=== PATIENT | female | born 1985 | race Two or more races ===

== ENCOUNTER 2021-06-30 18:20 | Emergency (ER) | payer OTHER ==
[2021-06-30 18:52] LABS: BASOPHILS % (AUTO) 0.6 %; EOSINOPHILS # (AUTO) 0.2 10^3/uL (0.0-0.7); EOSINOPHILS % (AUTO) 2.6 %; HCT - HEMATOCRIT 37.4 % (37.0-47.0); HGB - HEMOGLOBIN 12.6 g/dL (12.0-16.0); LYMPHOCYTES # (AUTO) 2.1 10^3/uL (1.5-3.5); LYMPHOCYTES % (AUTO) 29.8 %; MEAN CORPUSCULAR HGB CONC 33.7 g/dL (32.0-36.0); MEAN CORPUSCULAR VOLUME 91.9 fL (81.0-99.0); MEAN PLATELET VOLUME 8.9 fL (7.9-10.8); MONOCYTES # (AUTO) 0.5 10^3/uL (0.0-1.0); MONOCYTES % (AUTO) 6.8 %; NEUTROPHILS # (AUTO) 4.2 10^3/uL (1.5-6.6); NEUTROPHILS % (AUTO) 60.1 %; PLT - PLATELET COUNT 310 10^3/uL (130-450); RED BLOOD COUNT 4.07 10^6/uL (4.20-5.40); RED CELL DISTRIBUTION WIDTH 11.9 % (12.0-15.0)
[2021-06-30 18:53] LABS: BILIRUBIN,URINE NEGATIVE (NEGATIVE); GLUCOSE, URINE (UA) NEGATIVE (NEGATIVE); KETONES,URINE (UA) NEGATIVE (NEGATIVE); LEUKOCYTE ESTERASE, URINE NEGATIVE (NEGATIVE); NITRITE,URINE NEGATIVE (NEGATIVE); OCCULT BLOOD,URINE MODERATE (NEGATIVE); PH,URINE 6.5 PH (5.0-7.5); PROTEIN,URINE NEGATIVE (NEGATIVE); UROBILINOGEN,URINE 0.2 (NORMAL) E.U./dL (NORMAL)
[2021-06-30 18:57] LABS: CLARITY,URINE CLEAR (CLEAR)
[2021-06-30 19:06] LABS: ALBUMIN 4.3 g/dL (3.2-5.5); ALBUMIN/GLOBULIN RATIO 1.4 (1.0-2.2); BILIRUBIN,TOTAL 0.3 mg/dL (0.2-1.0); CALCIUM 9.2 mg/dL (8.5-10.3); CREATININE 0.9 mg/dL (0.4-1.0); POTASSIUM 4.1 mmol/L (3.5-5.0); TOTAL PROTEIN 7.4 g/dL (6.7-8.2)
[2021-06-30 19:12] LABS: BACTERIA,URINE None Seen /HPF (None Seen); RBC,URINE 0-5 /HPF (0-5); SQUAMOUS EPITHELIAL CELL,UR FEW Squamous (<= Few); WBC,URINE 0-3 /HPF (0-5)
[2021-06-30 19:23] VITALS: BP 107/68
--- NOTE | 2021-06-30 20:16 | ED Physician Documentation ---
History of Present Illness - Stated complaint Stated Complaint: SPOTTING/BLEEDING - Chief complaint Chief Complaint: Abd Pain - Additonal information Additional information: 35-year-old female presents emergency department for evaluation of vaginal bleeding in first trimester . G3, . LMP 04/26/2021. Patient has not yet established with an OB but does have an appointment in approximately 10 days. States that she began having light spotting and vaginal cramping earlier this afternoon. No dysuria urgency or frequency. No fevers. Review of Systems Constitutional: denies: Fever, Chills Nose: reports: Reviewed and negative Throat: reports: Reviewed and negative Cardiac: reports: Chest pain / pressure Respiratory: reports: Reviewed and negative GI: denies: Nausea, Vomiting : reports: LMP (04/26/2021), Vaginal bleeding, Now EGA. denies: Dysuria Skin: reports: Reviewed and negative Musculoskeletal: reports: Reviewed and negative PD PAST MEDICAL HISTORY - Allergies Allergies/Adverse Reactions: Allergies Allergy/AdvReac Type Severity Reaction Status Date / Time No Known Drug Allergies Allergy Verified 06/30/21 18:27 PD ED PE NORMAL - General General: Alert and oriented X 3, No acute distress - HEENT HEENT: PERRL - Cardiac Cardiac: RRR, No murmur - Respiratory Respiratory: No respiratory distress - Abdomen Abdomen: Normal bowel sounds, Soft. No: Non tender - Female Female : Deferred Results - Vitals Vitals: Vital Signs - 24 hr 06/30/21 06/30/21 06/30/21 18:23 18:26 19:45 Temperature 36.4 C L 37.1 C Heart Rate 81 65 Respiratory 20 15 Rate Blood Pressure 133/74 H 107/68 O2 Saturation 99 96 Oxygen O2 Source Room air - Labs Labs: Laboratory Tests 06/30/21 06/30/21 06/30/21 18:37 18:45 18:45 WBC 7.0 RBC 4.07 L Hgb 12.6 Hct 37.4 MCV 91.9 MCH 31.0 MCHC 33.7 RDW 11.9 L Plt Count 310 MPV 8.9 Neut # (Auto) 4.2 Lymph # (Auto) 2.1 [place]ala # (Auto) 0.5 Eos # (Auto) 0.2 Baso # (Auto) 0.0 Absolute Nucleated RBC 0.00 Nucleated RBC % 0.0 Sodium 136 Potassium 4.1 Chloride 100 L Carbon Dioxide 27 Anion Gap 9.0 BUN 15 Creatinine 0.9 Estimated GFR (MDRD) 71 L Glucose 100 Calcium 9.2 Total Bilirubin 0.3 AST 16 ALT 12 Alkaline Phosphatase 52 Total Protein 7.4 Albumin 4.3 Globulin 3.1 Albumin/Globulin Ratio 1.4 Lipase 40 HCG, Quant Urine Color YELLOW Urine Clarity CLEAR Urine pH 6.5 Ur Specific Armstrong 1.020 Urine Protein NEGATIVE Urine Glucose (UA) NEGATIVE Urine Ketones NEGATIVE Urine Occult Blood MODERATE H Urine Nitrite NEGATIVE Urine Bilirubin NEGATIVE Urine Urobilinogen 0.2 (NORMAL) Ur Leukocyte Esterase NEGATIVE Urine RBC 0-5 Urine WBC 0-3 Ur Squamous Epith Cells FEW Squamous Urine Bacteria None Seen Ur Microscopic Review INDICATED Urine Culture Comments NOT INDICATED Blood Type 06/30/21 06/30/21 18:45 18:45 WBC RBC Hgb Hct MCV MCH MCHC RDW Plt Count MPV Neut # (Auto) Lymph # (Auto) Zavala # (Auto) Eos # (Auto) Baso # (Auto) Absolute Nucleated RBC Nucleated RBC % Sodium Potassium Chloride Carbon Dioxide Anion Gap BUN Creatinine Estimated GFR (MDRD) Glucose Calcium Total Bilirubin AST ALT Alkaline Phosphatase Total Protein Albumin Globulin Albumin/Globulin Ratio Lipase HCG, Quant 28918.00 Urine Color Urine Clarity Urine pH Ur Specific Armstrong Urine Protein Urine Glucose (UA) Urine Ketones Urine Occult Blood Urine Nitrite Urine Bilirubin Urine Urobilinogen Ur Leukocyte Esterase Urine RBC Urine WBC Ur Squamous Epith Cells Urine Bacteria Ur Microscopic Review Urine Culture Comments Blood Type O POSITIVE - Rads (name of study) OB US Radiology: See rad report, Other (Per water quality technician there is a gestational sac and a yolk sac but no pole. There does appear to be a small amount of layering blood in the gestational sac. findings are concerning for impending, or threatened miscarriage) PD MEDICAL DECISION MAKING - ED course Complexity details: reviewed results, re-evaluated patient, considered differential, d/w patient ED course: 35-year-old female presents emergency department for evaluation of vaginal bleeding and pelvic cramping in first trimester . She is O+. Screening labs showed no acute worrisome findings. No findings of infection in the urine. Hormone levels just above 28,000. Unfortunately a pelvic OB ultrasound reveals a gestational and yolk sac without a pole. In addition to this the technologist reported layering blood within the gestational sac. She has started to have increased vaginal bleeding and cramping after ultrasound. I suspect that this is an impending or threatened miscarriage. Patient will discuss this ED visit with her OB on Friday. She is advised that further care management options could include repeat hormone level versus expectant care and management. Reassuringly there are no findings to suggest an ectopic . Emergent worrisome return precautions otherwise discussed. Departure - Departure Disposition: Home, Self Care Clinical Impression: Threatened in first trimester Condition: Stable Instructions: ED Miscarriage Poss Comments: Yajaira unfortunately the ultrasound today shows that you have a gestational sac but no evidence of cardiac activity. Based on your hormone levels as well as your last menstrual period we would expect to see a heart beat at this time. I suspect that you are in the process of having a miscarriage. At this stage in you can expect menstrual-like bleeding or perhaps a little heavier as well as abdominal cramping. If at any point you have vaginal bleeding that is heavier than 1 menstrual pad an hour, have sudden severe lower belly pain, feel faint or have fainting episodes then please return immediately to the ER. I would like you to discuss this ED visit with your OB providers on Friday. Please let them know that you came to the emergency department for vaginal bleeding. Your hormone level today was just over 20,000. They may want to consider a lab recheck in 48 to 72 hours or just discuss expectant management.
--- NOTE | 2021-06-30 20:28 | Ultrasound Report ---
PROCEDURE: OB First Trimester INDICATIONS: spotting 9 weeks OUTSIDE/PRIOR DATING DATA: Last menstrual period (LMP): 04/26/2021. LMP-based estimated date of delivery (ZIGGY): 01/31/2022. First dating scan (date and location): 06/30/2021. TECHNIQUE: Real-time scanning was performed of the fetus and maternal pelvic organs, with image documentation. COMPARISON: None. FINDINGS: Intrauterine gestational sac and yolk sac are seen. Mean sac diameter is 1.82 cm, compatible with an estimated gestational age of 6 weeks 5 days. Low-level echoes are seen within the gestational sac flu id. No pole identified. Measurement variability in dating: +/- 4 weeks by LMP, +/- 7 days by mean sac diameter (use before 6 weeks gestation if crown-rump length not able to be measured), +/- 5 days by crown-rump length (6-12 weeks gestation). Maternal organs: A left corpus luteum cyst is seen measuring up to 1.6 cm in diameter. No free fluid is seen. IMPRESSION: Intrauterine gestational sac and yolk sac are seen. No pole is identified. Nonspecific low leve l echoes are seen within the gestational sac. Findings are suspicious but not diagnostic for early pr egnancy failure. Recommend serial beta-hCG measurements and follow-up ultrasound. Concordant preliminary findings were conveyed to the ordering provider by the prosthetic lab technician on 2 at 7:45 PM Reviewed by: Francisco Moore MD on 06/30/2021 8:27 PM PST Approved by: Francisco Moore MD on 06/30/2021 8:27 PM PST Station ID: [id number]
--- NOTE | 2021-06-30 20:29 | Ultrasound Report ---
PROCEDURE: OB Transvaginal INDICATIONS: spotting 9 weeks OUTSIDE/PRIOR DATING DATA: Last menstrual period (LMP): 04/26/2021. LMP-based estimated date of delivery (ZIGGY): 01/31/2022. First dating scan (date and location): 06/30/2021. TECHNIQUE: Real-time scanning was performed of the fetus and maternal pelvic organs, with image documentation. COMPARISON: None. FINDINGS: Intrauterine gestational sac and yolk sac are seen. Mean sac diameter is 1.82 cm, compatible with an estimated gestational age of 6 weeks 5 days. Low-level echoes are seen within the gestational sac flu id. No pole identified. Measurement variability in dating: +/- 4 weeks by LMP, +/- 7 days by mean sac diameter (use before 6 weeks gestation if crown-rump length not able to be measured), +/- 5 days by crown-rump length (6-12 weeks gestation). Maternal organs: A left corpus luteum cyst is seen measuring up to 1.6 cm in diameter. No free fluid is seen. IMPRESSION: Intrauterine gestational sac and yolk sac are seen. No pole is identified. Nonspecific low leve l echoes are seen within the gestational sac. Findings are suspicious but not diagnostic for early pr egnancy failure. Recommend serial beta-hCG measurements and follow-up ultrasound. Concordant preliminary findings were conveyed to the ordering provider by the bistro attendant on 2 at 7:45 PM. Reviewed by: Francisco Moore MD on 06/30/2021 8:27 PM PST Approved by: Francisco Moore MD on 06/30/2021 8:27 PM PST Station ID: [id number]
== END 2021-06-30 20:08 | disposition home or self-care (01) ==
LOC: ED 18:20
DX: O20.0 Threatened abortion (principal); Z3A.09 9 weeks gestation of pregnancy
CPT/HCPCS: 36415; 80053; 81001; 81003; 83690; 84702; 85025; 86900; 86901; 87086; 99284

== ENCOUNTER 2022-08-12 14:45 | Outpatient (CLI) | payer OTHER ==
[2022-08-12 19:57] LABS: BASOPHILS % (AUTO) 0.4 %; EOSINOPHILS # (AUTO) 0.1 10^3/uL (0.0-0.7); EOSINOPHILS % (AUTO) 1.8 %; HCT - HEMATOCRIT 35.2 % (37.0-47.0); HGB - HEMOGLOBIN 11.6 g/dL (12.0-16.0); LYMPHOCYTES # (AUTO) 1.9 10^3/uL (1.5-3.5); LYMPHOCYTES % (AUTO) 23.8 %; MEAN CORPUSCULAR HEMOGLOBIN 30.5 pg (27.0-31.0); MEAN CORPUSCULAR VOLUME 92.6 fL (81.0-99.0); MEAN PLATELET VOLUME 9.5 fL (7.9-10.8); MONOCYTES # (AUTO) 0.4 10^3/uL (0.0-1.0); MONOCYTES % (AUTO) 5.4 %; NEUTROPHILS # (AUTO) 5.5 10^3/uL (1.5-6.6); NEUTROPHILS % (AUTO) 68.2 %; PLT - PLATELET COUNT 328 10^3/uL (130-450); RED CELL DISTRIBUTION WIDTH 12.9 % (12.0-15.0)
[2022-08-12 20:14] LABS: BILIRUBIN,URINE NEGATIVE (NEGATIVE); GLUCOSE, URINE (UA) NEGATIVE (NEGATIVE); KETONES,URINE (UA) NEGATIVE (NEGATIVE); LEUKOCYTE ESTERASE, URINE NEGATIVE (NEGATIVE); NITRITE,URINE NEGATIVE (NEGATIVE); OCCULT BLOOD,URINE NEGATIVE (NEGATIVE); PH,URINE 6.5 PH (5.0-7.5); PROTEIN,URINE NEGATIVE (NEGATIVE); UROBILINOGEN,URINE 0.2 (NORMAL) E.U./dL (NORMAL)
[2022-08-12 20:19] LABS: CLARITY,URINE CLEAR (CLEAR)
[2022-08-12 20:27] LABS: RBC,URINE 0-5 /HPF (0-5); WBC,URINE 0-3 /HPF (0-5)
[2022-08-12 20:28] LABS: AMORPHOUS SEDIMENT,UR Few /LPF; BACTERIA,URINE Rare /HPF (None Seen); SQUAMOUS EPITHELIAL CELL,UR FEW Squamous (<= Few)
[2022-08-14 04:09] LABS: RPR Non Reactive (Non Reactive)
[2022-08-14 06:10] LABS: HBsAG SCREEN Negative (Negative)
[2022-08-14 07:10] LABS: VARICELLA-ZOSTER AB IGG 695 index (Immune >165)
[2022-08-14 08:10] LABS: HCV AB Non Reactive (Non Reactive); HIV SCREEN 4TH GENERATION Non Reactive (Non Reactive)
== END 2022-08-12 14:46 | disposition home or self-care (01) ==
LOC: LAB.S 14:45
PROVIDERS: ATTEND Obstetrics & Gynecology
DX: Z34.90 Encounter for supervision of normal pregnancy, unspecified, unspecified trimester (principal)
CPT/HCPCS: 36415; 81001; 85025; 86592; 86762; 86787; 86803; 86850; 86900; 86901; 87086; 87340; 87389

== ENCOUNTER 2022-08-14 14:46 | Outpatient (CLI) | payer OTHER ==
--- NOTE | 2022-08-14 16:08 | Ultrasound Report ---
PROCEDURE: OB First Trimester w/TV INDICATIONS: POSITIVE TEST OUTSIDE/PRIOR DATING DATA: Last menstrual period (LMP): 06/01/2022. LMP-based estimated date of delivery (ZIGGY): 03/08/2023. First dating scan (date and location): 08/14/2022. Estimated date of delivery (ZIGGY) from first dating scan: 03/09/2023. The below data below was generated using the ultrasound ZIGGY of 03/09/2023 TECHNIQUE: Real-time scanning was performed of the fetus and maternal pelvic organs, with image documentation. Endovaginal scanning was also performed to better visualize the fetus and maternal ovaries. COMPARISON: None. FINDINGS: Embryo: Hyden-rump length measuring 3.49 cm, gestational age 10 weeks 3 days Heart rate: 169 bpm A yolk sac is seen. No prior gestational hemorrhage. Measurement variability in dating: +/- 4 weeks by LMP, +/- 7 days by mean sac diameter (use before 6 weeks gestation if crown-rump length not able to be measured), +/- 5 days by crown-rump length (6-12 weeks gestation). Maternal organs: Ovaries are unremarkable. IMPRESSION: 1. Leal living intrauterine at 10 weeks 3 days based on today's crown-rump length. 2. No perigestational hemorrhage. Reviewed by: Gokul Sylvester MD on 08/14/2022 4:06 PM PDT Approved by: Gokul Sylvester MD on 08/14/2022 4:06 PM PDT Station ID: [id number]
== END 2022-08-14 14:47 | disposition home or self-care (01) ==
LOC: DI 14:46
PROVIDERS: ATTEND Obstetrics & Gynecology
DX: Z34.91 Encounter for supervision of normal pregnancy, unspecified, first trimester (principal)

== ENCOUNTER 2022-08-16 08:00 | Outpatient (CLI) | payer OTHER ==
[2022-08-16 23:13] LABS: CHLAMYDIA TRACHOMATIS DNA NEGATIVE (NEGATIVE); NEISSERIA GONORRHOEAE DNA NEGATIVE (NEGATIVE); TRICHOMONAS VAGINALIS DNA NEGATIVE (NEGATIVE)
== END 2022-08-16 23:59 | disposition home or self-care (01) ==
LOC: LAB.WC 08:00
PROVIDERS: ATTEND Obstetrics & Gynecology
DX: O09.521 Supervision of elderly multigravida, first trimester (principal)
CPT/HCPCS: 87491; 87591; 87661

== ENCOUNTER 2022-09-23 15:59 | Outpatient (CLI) | payer OTHER | END 2022-09-23 16:00 | disposition home or self-care (01) | LOC: LAB 15:59 | PROVIDERS: ATTEND Obstetrics & Gynecology | DX: O09.521 Supervision of elderly multigravida, first trimester (principal) | CPT/HCPCS: 36415; 81599; 82105; 82950 ==

== ENCOUNTER 2022-11-04 15:16 | Outpatient (CLI) | payer OTHER ==
--- NOTE | 2022-11-04 18:10 | Ultrasound Report ---
PROCEDURE: OB Detailed Eval INDICATIONS: SUPERVISION OF OUTSIDE/PRIOR DATING DATA: Last menstrual period (LMP): 06/01/2022. LMP-based estimated date of delivery (ZIGGY): 03/08/2023. First dating scan (date and location): 08/14/2022. Estimated date of delivery (ZIGGY) from first dating scan: 03/09/2023. The below data below was generated using the ultrasound ZIGGY of 03/09/2023 TECHNIQUE: Real-time scanning was performed of the fetus, with image documentation and biometric measurements. Endovaginal scanning: Not performed COMPARISON: 08/14/2022 FINDINGS: General: A single living intrauterine gestation is present. Presentation: Cephalic Placenta: Placental position is anterior, without previa. Amniotic fluid index: 10.5 cm, within normal limits for gestational age. heart rate: 158 beats per minute. Maternal cervical canal: 4.7 cm long; normal length is 2.5 cm or more. biometrics: Biparietal diameter: 5.02 cm, 21 weeks and 1 days Head circumference: 19.5 cm, 21 weeks and 5 days Abdominal circumference: 17.77 cm, 22 weeks and 5 days Femur length: 3.7 cm, 21 weeks and 5 days Estimated gestational age from initial scan: 22 weeks and 1 day Composite gestational age from present scan: 21 weeks and 4 days Estimated weight and percentile: 481 g, 44.6th percentile. Measurement variability in biometric dating: +/- 10 days from 12-20 weeks gestation, +/- 2 weeks from 20-30 weeks gestation, +/- 3 weeks at 30 weeks gestation or later. Anatomic survey: Neuro: Ventricles are normal at less than 10 mm. Cisterna magna is normal at 3-11 mm. Cerebellum i s normal in size and morphology. Nuchal skin fold: Normal at less than 6 mm between 14 and 20 weeks gestational age. Face: Nose and lips, facial profile are normal. Spine: No evidence for spina bifida. Heart: 4-chambered heart is present, with normal ventricular outflow tracts. Diaphragm: Diaphragm is intact. Stomach: Left-sided stomach is present. Kidneys: No hydronephrosis. Normal is less than 5 mm in 2nd trimester, less than 7 mm in 3rd trimester. Cord: 3 vessel cord has orthotopic insertion. Bladder: Normal in size. Extremities: All 4 extremities are visualized. IMPRESSION: Single living intrauterine gestation with estimated sonographic gestational age of approximately 21 w eeks and 4 days. This measures concordantly with estimated sonographic gestational age from initial s can of approximately 22 weeks and 1 day. Expected interval growth has occurred. Estimated weigh t of approximately 481 g which [address] the fetus within the 44.6th percentile Unremarkable second trimester anatomy screening survey. Reviewed by: Tristian Velazco MD on 11/04/2022 5:09 PM BLANKA Approved by: Tristian Velazco MD on 11/04/2022 5:09 PM BLANKA Station ID: [id number]
== END 2022-11-04 15:17 | disposition home or self-care (01) ==
LOC: DI 15:16
PROVIDERS: ATTEND Obstetrics & Gynecology
DX: O09.522 Supervision of elderly multigravida, second trimester (principal); Z3A.21 21 weeks gestation of pregnancy

== ENCOUNTER 2022-11-21 08:18 | Outpatient (CLI) | payer OTHER ==
[2022-11-21 15:13] LABS: HCT - HEMATOCRIT 33.4 % (37.0-47.0); HGB - HEMOGLOBIN 10.7 g/dL (12.0-16.0); MEAN CORPUSCULAR HEMOGLOBIN 31.1 pg (27.0-31.0); MEAN CORPUSCULAR VOLUME 97.1 fL (81.0-99.0); MEAN PLATELET VOLUME 9.8 fL (7.9-10.8); RED BLOOD COUNT 3.44 10^6/uL (4.20-5.40); RED CELL DISTRIBUTION WIDTH 13.2 % (12.0-15.0); WHITE BLOOD COUNT 8.3 x10^3/uL (4.8-10.8)
== END 2022-11-21 08:19 | disposition home or self-care (01) ==
LOC: LAB.S 08:18
PROVIDERS: ATTEND Obstetrics & Gynecology
DX: O99.012 Anemia complicating pregnancy, second trimester (principal); O34.211 Maternal care for low transverse scar from previous cesarean delivery; O09.522 Supervision of elderly multigravida, second trimester; Z86.32 Personal history of gestational diabetes
CPT/HCPCS: 36415; 82728; 82950; 85027

== ENCOUNTER 2022-12-03 08:41 | Outpatient (CLI) | payer OTHER ==
[2022-12-03 09:25] LABS: GTT GLUCOSE,FASTING 89 mg/dL (74-109)
== END 2022-12-03 08:42 | disposition home or self-care (01) ==
LOC: LAB 08:41
PROVIDERS: ATTEND Obstetrics & Gynecology
DX: O99.012 Anemia complicating pregnancy, second trimester (principal); O99.810 Abnormal glucose complicating pregnancy
CPT/HCPCS: 36415; 82607; 82746; 82951; 82952

== ENCOUNTER 2023-02-06 09:20 | Outpatient (CLI) | payer OTHER ==
[2023-02-06 15:25] LABS: ALBUMIN 3.7 g/dL (3.2-5.5); ALBUMIN/GLOBULIN RATIO 1.4 (1.0-2.2); BILIRUBIN,TOTAL 0.3 mg/dL (0.2-1.0); CALCIUM 9.2 mg/dL (8.5-10.3); CREATININE 0.6 mg/dL (0.6-1.3); TOTAL PROTEIN 6.3 g/dL (6.4-8.9)
== END 2023-02-06 09:21 | disposition home or self-care (01) ==
LOC: LAB.S 09:20
PROVIDERS: ATTEND Nurse Practitioner
DX: R25.2 Cramp and spasm (principal)
CPT/HCPCS: 36415; 80053

== ENCOUNTER 2023-02-10 08:00 | Outpatient (CLI) | payer OTHER | END 2023-02-10 08:01 | disposition home or self-care (01) | LOC: LAB.WC 08:00 | PROVIDERS: ATTEND Obstetrics & Gynecology | DX: Z36.85 Encounter for antenatal screening for Streptococcus B (principal) | CPT/HCPCS: 87797 ==

== ENCOUNTER 2023-02-27 17:56 | Inpatient (IN) | payer OTHER ==
[2023-02-27 19:38] LABS: BILIRUBIN,URINE NEGATIVE (NEGATIVE); GLUCOSE, URINE (UA) NEGATIVE (NEGATIVE); KETONES,URINE (UA) NEGATIVE (NEGATIVE); LEUKOCYTE ESTERASE, URINE SMALL (NEGATIVE); NITRITE,URINE NEGATIVE (NEGATIVE); OCCULT BLOOD,URINE LARGE (NEGATIVE); PROTEIN,URINE TRACE mg/dL (NEGATIVE); UROBILINOGEN,URINE 0.2 (NORMAL) E.U./dL (NORMAL)
[2023-02-27 19:40] LABS: CLARITY,URINE CLOUDY (CLEAR)
[2023-02-27] MEDS ORDERED: CITRIC ACID/SODIUM CITRATE 15 ML UDC PO ONE (20:05)
[2023-02-27] MEDS ORDERED: ACETAMINOPHEN 500 MG TABLET PO ONE (20:05)
[2023-02-27] MEDS ORDERED: ceFAZolin (2G) 2 GM in SODIUM CHLORIDE 0.9% MINIBAG 100 ML IV ONE (20:05)
[2023-02-27 20:16] LABS: BASOPHILS % (AUTO) 0.2 %; EOSINOPHILS # (AUTO) 0.1 10^3/uL (0.0-0.7); EOSINOPHILS % (AUTO) 1.2 %; HCT - HEMATOCRIT 36.4 % (37.0-47.0); LYMPHOCYTES # (AUTO) 1.6 10^3/uL (1.5-3.5); LYMPHOCYTES % (AUTO) 18.3 %; MEAN CORPUSCULAR HEMOGLOBIN 30.8 pg (27.0-31.0); MEAN CORPUSCULAR VOLUME 93.6 fL (81.0-99.0); MEAN PLATELET VOLUME 10.4 fL (7.9-10.8); MONOCYTES # (AUTO) 0.6 10^3/uL (0.0-1.0); MONOCYTES % (AUTO) 7.2 %; NEUTROPHILS # (AUTO) 6.1 10^3/uL (1.5-6.6); NEUTROPHILS % (AUTO) 72.3 %; PLT - PLATELET COUNT 218 10^3/uL (130-450); RED BLOOD COUNT 3.89 10^6/uL (4.20-5.40); RED CELL DISTRIBUTION WIDTH 12.8 % (12.0-15.0); WHITE BLOOD COUNT 8.5 x10^3/uL (4.8-10.8)
--- NOTE | 2023-02-27 20:41 | ANESTHESIA ---
Pre-Anesthesia VS, & Labs - Diagnosis active labor - Procedure section Vital Signs: Temp Pulse Resp BP Pulse Ox O2 Flow Rate 36.8 C 72 16 125/88 H 02/27/23 18:14 02/27/23 18:14 02/27/23 18:14 02/27/23 18:14 Height: 5 ft 2 in Weight (kg): 73.482 kg Body Mass Index: 29.6 BMI Classification: Overweight - NPO Other (lunch at 2pm) - Is Patient ?: Yes - Lab Results Current Lab Results: Laboratory Tests 02/27/23 20:00: WBC 8.5, RBC 3.89 L, Hgb 12.0, Hct 36.4 L, MCV 93.6, MCH 30.8, MCHC 33.0, RDW 12.8, Plt Count 218, MPV 10.4, Neut # (Auto) 6.1, Lymph # (Auto) 1.6, [place] # (Auto) 0.6, Eos # (Auto) 0.1, Baso # (Auto) 0.0, Absolute Nucleated RBC 0.00, Nucleated RBC % 0.0 Fish Bones: 02/27/23 20:00 Home Medications and Allergies Active Medications Lactated Ringer's (Lr) 1,000 mls @ 125 mls/hr IV .Q8H MARY KATE Allergies/Adverse Reactions: Allergies Allergy/AdvReac Type Severity Reaction Status Date / Time No Known Drug Allergies Allergy Verified 06/30/21 18:27 Anes History & Medical History - Anesthetic History Anesthesia Complications: reports: No previous complications - Medical History Cardiovascular: reports: None Pulmonary: reports: None Exam General: Alert, Oriented x3, Cooperative Dental: WNL Mouth Opening: Greater than 4 Fingerbreadths Neck Mobility: Normal Mallampati classification: II Thyromental Distance: greater than 6 cm Respiratory: Lungs clear Cardiovascular: Regular rate Plan Anesthesia Type: Spinal, Transverse Abdominis Plane (TAP) Block Consent for Procedure(s) Verified and Reviewed: Yes Code Status: Attempt Resuscitation ASA classification: 2-Mild systemic disease Is this case an emergency?: Yes (urgent as scheduled C/S for next week)
[2023-02-27] MEDS ORDERED: ePHEDrine 50 MG/ML VIAL IVP ONE (20:55)
[2023-02-27] MEDS ORDERED: OXYTOCIN 10 UNIT/ML VIAL ONE (20:55)
[2023-02-27] MEDS ORDERED: SODIUM CHLORIDE 0.9% 10 ML VIAL IVP ONE ×2 (20:55→20:57)
[2023-02-27] MEDS ORDERED: LACTATED RINGERS 1,000 ML IV SCH ×2 (21:00→23:45)
[2023-02-27] MEDS ORDERED: OXYTOCIN/SODIUM CHLORIDE 500 ML IV ONE (21:13)
--- NOTE | 2023-02-27 21:27 | HISTORY & PHYSICAL EXAMINATION ---
Admit History - Visit Reason Visit Reason: Contractions - : 4 Parity: 1 Premature: 0 Ectopic: 0 : 2 Care: positive: [facility] Risk/History: positive: Other (AMA, failed 1h GTT, passed 3h GTT) Complications This : positive: None Smoking Status: Never smoker - Mother's Labs Mother's Blood Type: positive: O Mother's RH: positive: Positive GBS: positive: Group B Step Negative Rubella Status: positive: Equivocal, Immune - Other Maternal History Other Maternal History: PROBLEMS: section 08/28/2019 was breech, plan for RCS AMA - [facility] did genetic testing. History of GDM - 1h elevated, 3h wnl. discussed diet and exercise as if diabetic / healthy lifestyle. Anemia LEEP x1 Rubella N-I plan for IUD - possibly at time c/s LMP: 06/01/22 ZIGGY by LMP: 03/08/23 US:08/14/2022; 10+3, ZIGGY 03/09/2023 Final ZIGGY: 03/08/2023; C/W dates Pre- Weight:140.0 BMI: 25.70 Blood type: O Rh: POSITIVE Antibody: NEGATIVE CBC: PLT 328 HCT 35.2 HGB 11.6 RUB:Equivocal VZV:Immune HBsAg: Negative HepC: Non reactive RPR/AB-EIA: Non reactive HIV: Non reactive PAP: 2019 Normal per pt LEEP 02/2014 GC/CT: negative 08/16/22 HSV:Denies self or partner Genetic testing: [facility] pending from [facility] sent fax 02/10 for genetic screening results AFP: Negative Covid: 03/2021, 04/2021 Booster 03/2022 Booster 01/2023 Flu:given 01/03/2023 RSV- 02/11 FAS Placenta:Anterior w/o previa Cord: 3VC MATT:105cm EFW:481g 44.6th%ile 50gm OGCT: EARLY 09/23- 113 1hr GTT 140 3HR GTT: 89,194,149,76 TDAP: 12/17 Breast Pump: 12/17 Antibody screen: 3rd trimester H/H 33.410.1 [id number] 3rd trimester HIV GBS:Negative MOD: 39-week repeat - delayed cord clamping, skin to skin in OR if possible. Contraception: IUD likely 6 weeks, but considering at CS PMH: denies PSH: C/S x1, LEEP x1 POB: PGYN: h/o abnormal pap followed by LEEP. no h/o STDs no h/o problems with ovaries or uterus Meds: PNV, FeSO4, miralax All: NKDA Soc: neg x3, lives with Harshad her and their 3.5yo son. Fam: diabetes VSS NAD Conjunctiva pink, pale sclera +S1, S2, CTAB, no increased work of breathing Abd soft, NT, ND, visibly gravid at term Saleem: cephalic 8#4 EFM: 135mod andre + A cells, one andre D cell x1, cat II though overall very reassuring. Hawkins: occ ctx Cx: 1/100/-2 Ext: neg CCE . - HPI Current EDU 03/08/23 Gestation 38 Weeks and 5 Days 4 Para 1 Vital Signs Temperature 98.2 F 02/27/23 18:14 Heart Rate 72 02/27/23 18:14 Respiratory Rate 16 02/27/23 18:14 Blood Pressure 125/88 H 02/27/23 18:14 Temperature 98.2 F 02/27/23 18:14 Heart Rate 72 02/27/23 18:14 Respiratory Rate 16 02/27/23 18:14 Blood Pressure 125/88 H 02/27/23 18:14 O2 Saturation If not protocol: Oxygen Flow, liters/minute - NST Procedure NST Procedure Start Date 02/27/23 Start Time 18:13 Stop Time 18:33 Vibroacoustic Stimulation Used No Patient States Movement Yes Meds/Allgy - Allergies Allergies/Adverse Reactions: Allergies Allergy/AdvReac Type Severity Reaction Status Date / Time No Known Drug Allergies Allergy Verified 06/30/21 18:27 Physical - Abdominal Exam Vital Signs: Temp Pulse Resp BP Pulse Ox O2 Flow Rate 98.2 F 72 16 125/88 H 02/27/23 18:14 02/27/23 18:14 02/27/23 18:14 02/27/23 18:14 Plan for Labor - Plan For Labor I expect patient to be DC'd or transferred within 96 hours.: No
[2023-02-27] MEDS ORDERED: LIDOCAINE 1%-EPI 1:100000 20 ML MDV SUBQ ONE ×2 (22:13)
[2023-02-27] MEDS ORDERED: LIDOCAINE 1%-EPI 1:100000 20 ML MDV ONE (22:22)
[2023-02-27] MEDS ORDERED: fentaNYL 100 MCG/2 ML VIAL ONE ×2 (22:35→23:00)
[2023-02-27] MEDS ORDERED: KETOROLAC 30 MG/ML VIAL ONE (23:20)
[2023-02-27] MEDS ORDERED: PROPOFOL 200 MG/20 ML VIAL IVP ONE (23:22)
[2023-02-27] MEDS ORDERED: ROCURONIUM 50 MG/5 ML VIAL ONE (23:22)
[2023-02-27] MEDS ORDERED: ROPIVACAINE 0.5% PF 20 ML VIAL ONE (23:28)
[2023-02-27] MEDS ORDERED: LACTATED RINGERS 1,000 ML IV ONE (23:47)
[2023-02-27] MEDS ORDERED: ePHEDrine 50 MG/ML VIAL IVP PRN (23:56)
[2023-02-27] MEDS ORDERED: ATROPINE ABBOJECT 1 MG/10 ML SYRINGE IVP PRN (23:56)
[2023-02-27] MEDS ORDERED: HYDROmorphone 0.5 MG/0.5 ML SYRINGE IVP PRN (23:56)
[2023-02-27] MEDS ORDERED: METOCLOPRAMIDE 10 MG/2 ML VIAL IVP PRN (23:56)
[2023-02-27] MEDS ORDERED: NALOXONE 0.4 MG/ML VIAL IVP PRN (23:56)
[2023-02-27] MEDS ORDERED: ONDANSETRON 4 MG/2 ML VIAL IVP PRN (23:56)
[2023-02-27] MEDS ORDERED: MORPHINE 2 MG/ML CARPUJECT IVP PRN (23:56)
[2023-02-27] MEDS ORDERED: fentaNYL 100 MCG/2 ML VIAL IVP PRN (23:56)
--- NOTE | 2023-02-27 23:58 | OPERATIVE REPORT ---
Operative Report - General Admit Date: 02/27/23 Procedure Date: 02/26/23 Planned Procedure: repeat low transverse section via pfannensteil incision Pre-Op Diagnosis: history of prior C/S, IUP at term, labor Procedure Performed: RLTCS via pfannensteil incision Post Op Diagnosis: same as above - Procedure Note Primary Surgeon: mary Secondary Surgeon: Analisa Anesthesia Provider: MARIANA Anesthesia Technique: Local, Spinal Pathology: cord blood Estimated Blood Loss (mL): 500 Urine Output (mL): 125 Complications: none apparent - Other Other Information/Narrative: OPERATIVE NOTE Pre-operative diagnosis: 1. IUP @ 38+ 2. labor 3. h/o prior c/s 4. hospital does not do VBACs Procedure: RLTCS via pfannensteil skin incision Post-operative diagnosis: MARLYS Surgeon: Mary Valve Mechanic: GUADALUPE Hauser Anesthesia: Spinal Findings: viable female , Apgars 9/9, born at 2241 normal uterus normal tubes & ovaries bilaterally bladder adhesed to peritoneum over CARYN Complications: None apparent EBL: 500cc UOP: 125cc Procedure in detail: After risks benefits and alternatives, as well as indication for procedure and anticipated post-operative recovery course, were discussed with the patient informed consent was obtained and patient was taken to the operating theater where spinal anesthesia was administered without difficulty. Ugarte catheter was inserted in normal sterile fashion. Pt was prepared and draped in normal sterile fashion. Anesthesia was tested and found to be nearly adequate, discussed general anesthesia or attempting local to augment the spinal. Pt preferred to remain awake. Prior to skin incision pt received recommended antibiotics, surgical time out was performed, and all persons in the operating theater participated in time out and agreed. Pfannensteil skin incision made with scalpel. Prior scar was removed with eliptical incision. Incision carried down to level of fasia. Fascia incised and extended. Anterior aspect of rectus sheath dissected off of rectus muscle. Bladder adhesed to the peritoneum exactly where we would typically enter the peritoneum. This adhesive process was identified during the process of careful dissection, so we entered the peritoneum markedly caudal, identified the bladder, and then avoided it in order to visualize the CARYN. Then, surgical fie ld extended with gentle, and intentional - as the bladder was attached to the anterior peritoneum - lateral traction. Lower uterine segment identified, well developed. Bladder flap made. Uterine incision made with scalpel, uterus entered bluntly and incision extended bluntly. Surgeons right hand entered into lower uterine segment, presenting part elevated to level of incision and delivered atraumatically. Delayed cord clamping x 1 minute. Cord clamped and cut x2, baby handed to awaiting machine setter, apgars as noted above. Placenta delivered manually. Uterus exteriorized and wrapped in moist lap. Uterine cavity cleaned with moist lap and found to be free of membranes or debris. Uterine incision closed with 0 vicryl, running suture, and subsequently imbricated with the same suture. Incision inspected, hemostatic. Gutters cleaned. Uterus returned to abdominal cavity. All inspected, hemostatic. Peritoneum reapproximated without suture. Bladder dissected off of anterior peritoneum to some degree. Muscles inspected, fascia inspected, hemostatic. Fascia closed with 0 vicryl in running fashion. Subcutaneous tissue irrigated, and then closed with 2.0 vicryl in running fashion. Skin incision closed with subcuticular sutures with 4.0 vicryl. Pt and infant tolerated procedure well. All counts correct. Pt to PACU in stable condition.
[2023-02-28] MEDS ORDERED: CARBOPROST TROMETHAMINE 250 MCG/ML AMP IM PRN (00:07)
[2023-02-28] MEDS ORDERED: diphenhydrAMINE 25 MG CAPSULE PO PRN (00:07)
[2023-02-28] MEDS ORDERED: NALOXONE 0.4 MG/ML VIAL IVP PRN (00:07)
[2023-02-28] MEDS ORDERED: NIFEdipine 10 MG CAPSULE PO PRN (00:07)
[2023-02-28] MEDS ORDERED: METHYLERGONOVINE 0.2 MG/ML VIAL IM PRN (00:07)
[2023-02-28] MEDS ORDERED: OXYTOCIN 10 UNIT/ML VIAL IM PRN (00:07)
[2023-02-28] MEDS ORDERED: OXYTOCIN/SODIUM CHLORIDE 500 ML IV PRN (00:07)
[2023-02-28] MEDS ORDERED: hydrALAZINE INJ 20 MG/ML VIAL IVP PRN ×2 (00:07)
[2023-02-28] MEDS ORDERED: LABETALOL 20 MG/4 ML SYRINGE IVP PRN ×3 (00:07)
[2023-02-28] MEDS ORDERED: TRANEXAMIC ACID IN NACL 1,000 MG/100 ML BAG IV PRN (00:07)
[2023-02-28] MEDS: oxyCODONE 5 MG TABLET PO PRN ×6 (01:02→23:14)
[2023-02-28] MEDS: KETOROLAC 30 MG/ML VIAL IVP SCH ×3 (05:45→17:35)
[2023-02-28] MEDS: ACETAMINOPHEN 500 MG TABLET PO SCH ×3 (05:45→22:38)
[2023-02-28] MEDS: DOCUSATE SODIUM 100 MG CAPSULE PO SCH ×2 (09:09→22:39)
--- NOTE | 2023-02-28 12:36 | PROVIDER PROGRESS NOTE ---
Subjective - Prog Note Date Prog Note Date: 02/28/23 - Subjective Subjective: Patient is postoperative day 1 status post repeat section Secondary to history of previous section and presenting in labor.Ugarte has been discontinued and patient is spontaneously voiding and ambulating. She is complaining of left-sided pain that extends to the left outer aspect of her thigh. She is also complaining of some incisional pain. Patient is tolerating p.o. Passing flatus. Objective - Vital Signs/Intake & Output Reviewed Vital Signs: Yes Vital Signs: Vital Signs x48h Temp Pulse Resp BP Pulse Ox 02/28/23 10:00 98.4 F 68 16 108/59 L 96 02/28/23 04:40 98.2 F 60 12 104/61 97 Intake & Output: Intake & Output 02/25/23 02/26/23 02/27/23 02/28/23 23:59 23:59 23:59 23:59 Intake Total 850 Output Total 1750 Balance -900 - Objective General Appearance: positive: No acute distress Respiratory: positive: Breath sounds nml Cardiovascular: positive: Regular rate & rhythm Abdomen: positive: Non-tender (Appropriately tender. Dressing in place and dry.). negative: Guarding, Rebound Extremities: positive: Non-tender (Patient has some tenderness on the left outer aspect of her left thigh, will continue to monitor.), No pedal edema - Lab Results Fish Bones: 02/27/23 20:00 Other Labs: Lab Results x24hrs 02/27/23 02/27/23 02/27/23 Range/Units 21:29 20:00 20:00 WBC 8.5 (4.8-10.8) x10^3/uL RBC 3.89 L (4.20-5.40) 10^6/uL Hgb 12.0 (12.0-16.0) g/dL Hct 36.4 L (37.0-47.0) % MCV 93.6 (81.0-99.0) fL MCH 30.8 (27.0-31.0) pg MCHC 33.0 (32.0-36.0) g/dL RDW 12.8 (12.0-15.0) % Plt Count 218 (130-450) 10^3/uL MPV 10.4 (7.9-10.8) fL Neut # (Auto) 6.1 (1.5-6.6) 10^3/uL Lymph # (Auto) 1.6 (1.5-3.5) 10^3/uL [place] # (Auto) 0.6 (0.0-1.0) 10^3/uL Eos # (Auto) 0.1 (0.0-0.7) 10^3/uL Baso # (Auto) 0.0 (0.0-0.1) 10^3/uL Absolute Nucleated RBC 0.00 x10^3/uL Nucleated RBC % 0.0 /100WBC POC Whole Bld Glucose 81 (70 - 100) mg/dL Urine Color Urine Clarity (CLEAR) Urine pH (5.0-7.5) PH Ur Specific [place] (1.002-1.030) Urine Protein (NEGATIVE) mg/dL Urine Glucose (UA) (NEGATIVE) mg/dL Urine Ketones (NEGATIVE) mg/dL Urine Occult Blood (NEGATIVE) Urine Nitrite (NEGATIVE) Urine Bilirubin (NEGATIVE) Urine Urobilinogen (NORMAL) E.U./dL Ur Leukocyte Esterase (NEGATIVE) Blood Type O POSITIVE Antibody Screen NEGATIVE 02/27/23 Range/Units 19:27 WBC (4.8-10.8) x10^3/uL RBC (4.20-5.40) 10^6/uL Hgb (12.0-16.0) g/dL Hct (37.0-47.0) % MCV (81.0-99.0) fL MCH (27.0-31.0) pg MCHC (32.0-36.0) g/dL RDW (12.0-15.0) % Plt Count (130-450) 10^3/uL MPV (7.9-10.8) fL Neut # (Auto) (1.5-6.6) 10^3/uL Lymph # (Auto) (1.5-3.5) 10^3/uL [place] # (Auto) (0.0-1.0) 10^3/uL Eos # (Auto) (0.0-0.7) 10^3/uL Baso # (Auto) (0.0-0.1) 10^3/uL Absolute Nucleated RBC x10^3/uL Nucleated RBC % /100WBC POC Whole Bld Glucose (70 - 100) mg/dL Urine Color YELLOW Urine Clarity CLOUDY (CLEAR) Urine pH 6.0 (5.0-7.5) PH Ur Specific [place] 1.020 (1.002-1.030) Urine Protein TRACE (NEGATIVE) mg/dL Urine Glucose (UA) NEGATIVE (NEGATIVE) mg/dL Urine Ketones NEGATIVE (NEGATIVE) mg/dL Urine Occult Blood LARGE H (NEGATIVE) Urine Nitrite NEGATIVE (NEGATIVE) Urine Bilirubin NEGATIVE (NEGATIVE) Urine Urobilinogen 0.2 (NORMAL) (NORMAL) E.U./dL Ur Leukocyte Esterase SMALL H (NEGATIVE) Blood Type Antibody Screen Assessment/Plan - Problem List (1) Delivery by section Impression: Discussed pain management options. Will add 0.5 mg IV Dilaudid x1. Will also monitor patient's left-sided thigh pain.
[2023-02-28] MEDS ORDERED: HYDROmorphone 0.5 MG/0.5 ML SYRINGE IVP SCH (13:00)
[2023-02-28] MEDS: SIMETHICONE CHEW 80 MG TABLET PO PRN (17:43)
[2023-02-28] MEDS: IBUPROFEN 600 MG TABLET PO SCH (23:28)
[2023-03-01] MEDS: oxyCODONE 5 MG TABLET PO PRN ×5 (03:42→20:33)
[2023-03-01] MEDS: SIMETHICONE CHEW 80 MG TABLET PO PRN (03:43)
[2023-03-01 05:38] LABS: HCT - HEMATOCRIT 31.1 % (37.0-47.0); HGB - HEMOGLOBIN 10.2 g/dL (12.0-16.0); MEAN CORPUSCULAR HEMOGLOBIN 31.5 pg (27.0-31.0); MEAN CORPUSCULAR HGB CONC 32.8 g/dL (32.0-36.0); MEAN PLATELET VOLUME 10.2 fL (7.9-10.8); RED BLOOD COUNT 3.24 10^6/uL (4.20-5.40); RED CELL DISTRIBUTION WIDTH 12.9 % (12.0-15.0); WHITE BLOOD COUNT 7.9 x10^3/uL (4.8-10.8)
[2023-03-01] MEDS: ACETAMINOPHEN 500 MG TABLET PO SCH ×3 (06:23→20:32)
[2023-03-01] MEDS: IBUPROFEN 600 MG TABLET PO SCH ×3 (06:24→20:31)
[2023-03-01] MEDS: DOCUSATE SODIUM 100 MG CAPSULE PO SCH ×2 (08:43→20:32)
--- NOTE | 2023-03-01 09:15 | PROVIDER PROGRESS NOTE ---
Subjective - Prog Note Date Prog Note Date: 03/01/23 Prog Note Time: 09:14 - Subjective Pt reports feeling: Improved Subjective: Patient is postop day 2 status post repeat section. Patient is doing well this morning. She is ambulating, tolerating regular diet, spontaneously voiding, passing flatus. Pain is well controlled. The pain on her left lateral thigh has resolved. She has some mild incisional pain which is well controlled with medication. Objective - Vital Signs/Intake & Output Reviewed Vital Signs: Yes Vital Signs: Vital Signs x48h Temp Pulse Resp BP Pulse Ox 03/01/23 08:15 98.4 F 66 18 105/52 L 100 03/01/23 05:00 98.1 F 63 16 103/65 97 Intake & Output: Intake & Output 02/26/23 02/27/23 02/28/23 03/01/23 23:59 23:59 23:59 23:59 Intake Total 1000 1400 300 Output Total 2725 Balance 1000 -1325 300 - Objective General Appearance: positive: No acute distress Respiratory: positive: Breath sounds nml Cardiovascular: positive: Regular rate & rhythm Abdomen: positive: Non-tender (Appropriately tender. Dressing removed, incision is clean, dry, and intact) Skin: positive: Color nml Extremities: positive: No pedal edema - Lab Results Fish Bones: 03/01/23 05:07 Other Labs: Lab Results x24hrs 03/01/23 Range/Units 05:07 WBC 7.9 (4.8-10.8) x10^3/uL RBC 3.24 L (4.20-5.40) 10^6/uL Hgb 10.2 L (12.0-16.0) g/dL Hct 31.1 L (37.0-47.0) % MCV 96.0 (81.0-99.0) fL MCH 31.5 H (27.0-31.0) pg MCHC 32.8 (32.0-36.0) g/dL RDW 12.9 (12.0-15.0) % Plt Count 183 (130-450) 10^3/uL MPV 10.2 (7.9-10.8) fL Assessment/Plan - Problem List (1) Delivery by section Impression: 1. POD#2 Patient is doing well postoperatively and pain is well controlled.
[2023-03-01] MEDS ORDERED: MEASLES,MUMPS & RUBELLA VACC 0.5 ML VIAL SUBQ ONE (14:35)
[2023-03-02] MEDS: oxyCODONE 5 MG TABLET PO PRN ×4 (00:21→13:07)
[2023-03-02] MEDS: IBUPROFEN 600 MG TABLET PO SCH ×2 (02:36→09:42)
[2023-03-02] MEDS: ACETAMINOPHEN 500 MG TABLET PO SCH ×2 (04:44→12:10)
--- NOTE | 2023-03-02 09:41 | Discharge Plan ---
Discharge Plan Problem Reviewed?: Yes Disposition: Home, Self Care Condition: Good Prescriptions: oxyCODONE [Roxicodone] 5 mg PO Q4HR PRN #21 tab PRN Reason: Severe Pain 6 -10 Ibuprofen [Motrin] 600 mg PO Q6HR PRN #30 tab PRN Reason: Pain 5-7 Docusate Sodium 100Mg Capsule [Colace 100Mg Capsule] 200 mg PO BID PRN #60 cap PRN Reason: Constipation Diet: Regular Activity Restrictions: no heavy lifting,no drive Weight Bearing: Full Weight No Smoking: If you smoke, Please STOP! Call for help. Follow-up with: PENELOPE SNOW ARNP [Primary Care Provider] -
[2023-03-02] MEDS: DOCUSATE SODIUM 100 MG CAPSULE PO SCH (09:42)
--- NOTE | 2023-03-02 09:44 | DISCHARGE SUMMARY ---
Discharge Summary Discharge Date: 03/02/23 Discharging Provider: Marco Condition at Discharge: Good Discharge Disposition: 01 Home, Self Care - DIAGNOSES Admission Diagnoses: 1. Labor 2. History of previous section - HPI History of Present Illness: Patient presented in labor with history of previous . She had a repeat section without complication. Her course was uncomplicated and she was discharged home on postoperative day #3. Patient was counseled on signs and symptoms of depression. She received MMR . - ALLERGIES Allergies/Adverse Reactions: Allergies Allergy/AdvReac Type Severity Reaction Status Date / Time No Known Drug Allergies Allergy Verified 06/30/21 18:27 - MEDICATIONS Home Medications: Ambulatory Orders Medication Instructions Recorded Confirmed Docusate Sodium 100Mg Capsule 200 mg PO BID PRN #60 cap 03/02/23 [Colace 100Mg Capsule] Ibuprofen [Motrin] 600 mg PO Q6HR PRN #30 tab 03/02/23 oxyCODONE [Roxicodone] 5 mg PO Q4HR PRN #21 tab 03/02/23 - PHYSICAL EXAM AT DISCHARGE General Appearance: positive: No acute distress Respiratory: positive: Breath sounds nml Cardiovascular: positive: Regular rate & rhythm Abdomen: positive: Non-tender (Appropriately tender, incision: Clean, dry, intact) Extremities: positive: No pedal edema - LABS Result Diagrams: 03/01/23 05:07
--- NOTE | 2023-03-02 09:46 | PROVIDER PROGRESS NOTE ---
Subjective - Prog Note Date Prog Note Date: 03/02/23 Prog Note Time: 09:44 - Subjective Subjective: Patient is postoperative day 3 status post repeat section. Patient is doing well this morning. She is ambulating, tolerating a diet, spontaneously voiding, passing flatus. She does have some left sided incisional pain, but pain is well controlled with oral pain medications. Objective - Vital Signs/Intake & Output Reviewed Vital Signs: Yes Vital Signs: Vital Signs x48h Temp Pulse Resp BP Pulse Ox 03/02/23 05:02 97.7 F 60 16 114/66 98 Intake & Output: Intake & Output 02/27/23 02/28/23 03/01/23 03/02/23 23:59 23:59 23:59 23:59 Intake Total 1000 1400 300 Output Total 2725 Balance 1000 -1325 300 - Objective General Appearance: positive: No acute distress Respiratory: positive: Breath sounds nml Cardiovascular: positive: Regular rate & rhythm Abdomen: positive: Non-tender (Appropriately tender. Incision: Clean, dry, intact) Extremities: positive: No pedal edema Neurologic/Psychiatric: positive: Mood/affect nml - Lab Results Fish Bones: 03/01/23 05:07 Assessment/Plan - Problem List (1) Delivery by section Impression: Patient had uncomplicated postoperative course. She received MMR vaccination. She was counseled on signs and symptoms of depression.
[2023-03-02 09:54] VITALS: BP 122/70; O2SAT 99
[2023-03-02] MEDS: SIMETHICONE CHEW 80 MG TABLET PO PRN (12:10)
--- NOTE | 2023-03-02 14:07 | Labor Flowsheet ---
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 Datetime: 02/27/2023 19:37 VAGINAL EXAM Dilatation (cm): 1.0 Effacement (%): 100 Station: -2 Exam by: Debbie Guzman RN Vaginal Bleeding: Normal Show Cervix, Consistency: Moderate Cervix, Position: Posterior Datetime: 02/27/2023 19:06 COMMUNICATION Communication: Report Given to @ Debbie Bielefeld, RN Datetime: 02/27/2023 18:29 Pulse: 76 SpO2 (%): 100 Datetime: 02/27/2023 18:15 VITAL SIGNS NBP Sys/[place]/Mean (mmHg): 125 : 88 : 97
== END 2023-03-02 13:58 | disposition home or self-care (01) | DRG 788 ==
LOC: WFO 17:56 → FBP 17:59 → WFO 19:56 → FBP 19:57
PROVIDERS: ADMIT Obstetrics & Gynecology; ATTEND Obstetrics & Gynecology Obstetrics
PROC: 10D00Z1 Extraction of Products of Conception, Low, Open Approach (ICD-10-PCS; principal; 2023-02-27 21:30)
DX: O34.211 Maternal care for low transverse scar from previous cesarean delivery (principal); N85.8 Other specified noninflammatory disorders of uterus; Z3A.39 39 weeks gestation of pregnancy; Z37.0 Single live birth; Z23 Encounter for immunization
CPT/HCPCS: 36415; 59025; 81003; 85025; 85027; 86850; 86900; 86901; 99215; A9270; J1170; J2795; J7120